=== PATIENT | male | born 1930 | race Caucasian/White ===

== ENCOUNTER → 2016-07-10 | Outpatient (CLI) | payer OTHER ==
[2016-07-10 14:02] LABS: BLOOD UREA NITROGEN 14 mg/dl (7-18); CREATININE 0.93 mg/dl (0.60-1.40); GLUCOSE 85 mg/dl (70-99)
[2016-07-10 14:03] LABS: ALT/SGPT 15 U/L (12-78); BASO % 0.2 %; BASO ABS # 0.02 K/uL (0-0.2); BUN/CREATININE RATIO 15.4 (10-20); CALCIUM 9.3 mg/dl (8.5-10.1); CARBON DIOXIDE 27 mmol/L (21-32); CHLORIDE 108 mmol/L (98-107); COMPLETE YES; EOS % 1.4 %; HEMATOCRIT 46.3 % (42-52); IG% 0.2 %; LYMPH % 42.8 %; LYMPH ABS # 3.68 K/uL (1.2-3.4); MEAN CELL VOLUME 97.1 fL (80-100); MEAN CORPUSCULAR HEMOGLOBIN 32.9 pg (25-34); MEAN CORPUSCULAR HGB CONC 33.9 g/dl (32-36); MEAN PLATELET VOLUME 10.7 fL (7.4-10.4); MONO % 7.6 %; NEUT % 47.8 %; PLATELET COUNT 309 K/uL (130-400); POTASSIUM 4.1 mmol/L (3.5-5.1); RED BLOOD COUNT 4.77 M/uL (4.7-6.1); SODIUM 143 mmol/L (136-145); WHITE BLOOD COUNT 8.59 K/uL (4.8-10.8)
[2016-07-10 14:05] LABS: ALB/GLOB RATIO 1.2 (0.9-2); ALKALINE PHOSPHATASE 51 U/L (45-117); AST/SGOT 14 U/L (15-37)
== END | disposition home or self-care (01) ==
LOC: C.LABBC 09:31
PROVIDERS: ATTEND Family Medicine
DX: C67.9 Malignant neoplasm of bladder, unspecified (principal); F03.90 Unspecified dementia, unspecified severity, without behavioral disturbance, psychotic disturbance, mood disturbance, and anxiety

== ENCOUNTER → 2017-01-16 | Outpatient (CLI) | payer OTHER ==
[2017-01-16 12:34] LABS: CHOLESTEROL/HDL RATIO 3.9; THYROID STIMULATING HORMONE 1.1 uIu/ml (0.300-4.500)
== END | disposition home or self-care (01) ==
LOC: C.LABPBG 08:15
PROVIDERS: ATTEND Neuromusculoskeletal Medicine & OMM
DX: Z00.00 Encounter for general adult medical examination without abnormal findings (principal)